=== PATIENT | female | born 1955 | race Caucasian/White ===

== ENCOUNTER 2018-09-20 13:51 | Inpatient (IN) ==
--- NOTE | 2018-09-20 13:46 | HISTORY AND PHYSICAL ---
CHIEF COMPLAINT: Right leg swelling and pain. HISTORY OF PRESENT ILLNESS: This 63-year-old, white female presented to the office today with pain in her right leg for a couple of days. She denies any type of injury and reports that the pain and swelling has occurred from hip to ankle for approximately 2 days. She has some mild to moderate tenderness but has a dull aching sensation throughout her leg. She has had no prolonged time of inactivity noted either. VITAL SIGNS: 124/72, pulse is 104. PAST MEDICAL HISTORY: 1. B12 deficiency. 2. Hypothyroidism, acquired. 3. 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 4. Metabolic syndrome along with insulin-dependent diabetes mellitus. PAST SURGICAL HISTORY: 1. Total vaginal, hysterectomy. 2. Tonsillectomy. SOCIAL HISTORY: Patient is . She does not use alcohol. She has never been a smoker. ALLERGIES: Penicillins. MEDICATIONS: 1. Cyanocobalamin 1000 mcg/mL injection every 2 weeks. 2. Levothyroxine 88 mcg p.o. daily. 3. Metformin 500 mg p.o. at bedtime. 4. Pravastatin 40 mg p.o. at bedtime. REVIEW OF SYSTEMS: Constitutional: Patient denies any headache or visual change. Neck: She has had no symptoms in neck. Chest: She denies any cough, wheezing, or shortness of breath. She has had no chest pain or palpitations. Gastrointestinal: She denies any nausea or vomiting. Her bowels have been working normally. Genitourinary: She has no genitourinary complaints. Musculoskeletal: The patient complains of her right leg pain, is difficult to walk. Neurologic: No focal deficits, although walking is difficult because of the right leg pain. Psychiatric: The patient denies any depression, anxiety, or insomnia. LABORATORY DATA: Pending. ASSESSMENT AND PLAN: 1. The patient was sent for outpatient vascular study which showed deep venous thrombosis basically from the hip all the way down to the ankle. She is admitted for treatment of deep venous thrombosis. The patient will be put in BRANDON hose. We will start a heparin drip. Prior to that, we plan to get a full hypercoagulation profile. It is noted that patient did have a filter placed for her previous DVT. I believe at that time the workup was negative, but that dates back a good 20+ years. Consideration for consultation of Dr. Robin Munguia will be made. 2. Because the patient's heparin will be hung in D5, I have increased her metformin and we will do fingerstick to make sure that her blood sugar remains under reasonable control. 3. The patient's other home medications remain as they were previously. 4. The patient will be placed on telemetry. cc: Brian Kothari MD
[~2018-09-20 13:51] MED LIST: SALINE LOCK IV FLUID XX ONE; TYLENOL PO PRN; ZOFRAN IV PRN
[2018-09-20] MEDS: HUMALOG SUBQ SCH ×2 (19:36→21:00)
[2018-09-20 20:20] LABS: BASO# 0.04 X1000 (0.0-0.2); BASO% 0.3 % (0.0-0.8); EOS# 0.08 X1000 (0.0-0.7); EOS% 0.6 % (0.0-10.0); HEMATOCRIT 42.4 % (37.0-47.0); HEMOGLOBIN 13.7 g/dL (12.0-16.0); IMM GRAN# 0.06 X1000 (0.0-0.04); IMM GRAN% 0.4 % (0.0-0.5); LYMPH# 2.47 X1000 (1.2-3.4); LYMPH% 17.6 % (20.5-51.1); MCH 28.8 PG (27-31); MCHC 32.3 g/dL (33-37); MCV 89.3 FL (81-99); MONO# 1.27 X1000 (0.11-0.59); MPV 12.1 FL (7.4-10.4); NEUT# 10.13 X1000 (1.4-6.5); NEUT% 72.1 % (42.2-75.2); PLT 269 X1000 (130-400); RBC 4.75 XMIL (4.2-5.4); RDW 13.4 % (11.5-14.5); WBC 14.05 X1000 (4.8-10.8)
[2018-09-20 20:26] LABS: INR 0.92; PROTIME 13.1 Seconds (11.0-16.0)
[2018-09-20 20:41] LABS: ALB/GLOB RATIO 1.3; ALBUMIN 4.4 g/dL (3.5-5.0); CALCIUM 9.9 mg/dL (8.8-10.2); POTASSIUM 4.9 mmol/L (3.5-5.1); TOTAL BILIRUBIN 0.46 mg/dL (0.20-1.00); TOTAL PROTEIN 7.7 g/dL (6.3-8.3)
[2018-09-20] MEDS: HEPARIN 25,000 UNITS/D5W 25,000 UNIT/250 ML IV.SOLN IV SCH (20:45)
[2018-09-20] MEDS: PRAVACHOL PO SCH (23:55)
[2018-09-21] MEDS ORDERED: HEPARIN IV ONE (04:29)
[2018-09-21] MEDS: HUMALOG SUBQ SCH ×4 (10:07→21:00)
[2018-09-21] MEDS: XARELTO PO SCH ×2 (10:28→20:13)
[2018-09-21] MEDS: SYNTHROID PO SCH (10:29)
--- NOTE | 2018-09-21 10:48 | Extremity Venous Study ---
PROCEDURE NAME: Venous U/S Right Leg - 09/20/2018 REQUESTING PHYSICIAN: Dr. Kothari. CHOCOLATE MAKER: Celia. INDICATIONS: 1. Pain and edema, right leg. 2. History of DVT in the right leg, with pulmonary embolism. EQUIPMENT: [employer] Local Vivid E9 ultrasound system, with 9 L-D transducer. FINDINGS: Images of the right lower extremity venous system with comparison shot to the left common femoral vein were obtained in both sagittal and transverse planes. Doppler was used to evaluate veins for spontaneity, phasicity, respiratory excursion, and digital augmentation. RESULTS: Extensive DVT noted on the right side. This involves the common femoral, superficial femoral, deep femoral, popliteal vein, posterior tibial vein, peroneal vein, and soleal veins. There is some flow noted in the right common femoral vein and deep femoral vein, which may make this chronic, but the other aspects of this DVT appear to be acute, with no flow noted in the veins. INTERPRETATION: Extensive DVT noted in the right lower extremity as noted above, which is a combination of both acute and chronic by flow patterns. Per the parking enforcement technician's note, telephone preliminary report was given to Annabel at Dr. Kothari's office at 12:25 p.m. on the day of the study, 09/20/2018. cc: MD Brian Carpenter MD
--- NOTE | 2018-09-21 11:01 | PROGRESS NOTE ---
DATE: 09/21/2018 SUBJECTIVE: The patient was admitted yesterday with acute DVT of the right leg Basically from hip to ankle. Over the course of her treatment with heparin yesterday, the pain in her leg had dissipated greatly, as has the swelling. She is able to walk an hour as she was almost immobilized yesterday. I had reviewed her history and realized that she had a DVT when she was some 25 years ago and had a filter placed, which is fortuitous for her. She has had no shortness of breath, chest pain and her pain has been reasonably controlled. PHYSICAL EXAMINATION: General: She is a well-developed, well-nourished white female, in no acute distress. She is alert, oriented, conversive and appropriate. Lungs: Clear. Cardiovascular: Regular. Extremities: Her right lower extremity is much, much less tender. It is less swollen by appearance and palpation, and she shows marked improvement, which is actually somewhat inexplicable. LABORATORY DATA: White cell count 14.0, hemoglobin and hematocrit is 13.7 and 42.4, platelet normal count 269,000. PT and INR, PTT were normal. Initially, sodium was slightly elevated at 148, creatinine 1.0. Electrolytes and fluid and function tests were normal otherwise. ASSESSMENT AND PLAN: 1. Patient has acute deep venous thrombosis of the right leg. Hypercoagulation studies have been sent off. I am going to keep the patient on heparin for now and add Xarelto 15 mg twice daily. We will recheck blood counts in the morning via the lab and if she is doing well, I will likely discontinue her heparin and send her home on Xarelto. We also discussed that if her coagulation studies come back positive for any type of hereditary predisposition, that she will likely be on blood thinners for the rest of her life. Otherwise, this is only her 2nd blood clot in 25 years and we will treat for 6 to 9 months and discontinue blood thinner at that point, especially given the fact that she already has a [place] filter placed. 1. Hypothyroidism. Aware. cc: Brian Kothari MD
[2018-09-21] MEDS: HEPARIN 25,000 UNITS/D5W 25,000 UNIT/250 ML IV.SOLN IV SCH (20:12)
[2018-09-21] MEDS: PRAVACHOL PO SCH (20:13)
[2018-09-22] MEDS: HUMALOG SUBQ SCH (06:31)
[2018-09-22 07:28] VITALS: BP 113/73
--- NOTE | 2018-09-22 08:20 | DISCHARGE SUMMARY ---
ADMISSION DATE: 09/20/2018 DISCHARGE DATE: 09/22/2018 DISCHARGE DIAGNOSES: 1. Acute right deep venous thrombosis involving the entire right leg. 2. Hypothyroidism, acquired. 3. Non insulin-dependent diabetes mellitus, well controlled. CONSULTATIONS: None. HOSPITAL COURSE: This patient was admitted with acute swelling and pain of her right leg. Doppler evaluation on that leg revealed acute and chronic elements of deep venous thrombosis. The patient was admitted to the hospital and started on a heparin protocol. I expected with the clot burden of her DVT that it would take multiple days to get resolution of pain and swelling. Rather miraculously, over the first 24 hours she had marketed reduction in the amount of pain, and her perceived sense of swelling in the leg. It had never been markedly enlarged, but was clearly tense on the exterior when palpated and tender. This resolved very quickly, and I was surprised frankly. The patient was continued on heparin protocol, but we did add Xarelto 15 mg twice daily. The patient had no complications after discontinuation of the heparin. She had no shortness of breath or chest pain. It is noted the patient had a DVT some 25 years ago, and was treated for 6 to 9 months with anticoagulation therapy and then discontinued. She has had no further incidents over the last 25 years. She had a [place] filter placed during that first event 25 years ago, and has remained in place with no complications. The patient is discharged home in good condition. I have given her Xarelto 15 mg twice daily for home use until she can follow up with me next week. At that point, we will transition to Xarelto 20 mg, which she will be on for 6 to 9 months. During her hospitalization, we did send off some testing for a hypercoagulable state. All that lab work is pending at the time of this dictation. I should have that next week when she has follow-up. If she has any indication of genetic predisposition to DVT given the fact that she has had a recurrence, she will likely be on anticoagulation therapy for the rest of her life. This was explained to her. cc: Brian Kothari MD
[2018-09-22] MEDS: XARELTO PO SCH (08:57)
[2018-09-22] MEDS: SYNTHROID PO SCH (08:58)
== END 2018-09-22 11:00 | disposition home or self-care (01) | DRG 301 ==
LOC: EDIPHOLD 14:59 → 4N 09-21 13:59
PROVIDERS: ADMIT Internal Medicine; ATTEND Internal Medicine
CPT/HCPCS: 80053; 81241; 82948; 85025; 85300; 85301; 85302; 85306; 85610; 85612; 85613; 85730; 93971; 94760; A9270; J1644; XXXXX